=== PATIENT | female | born 1970 | race Caucasian/White ===

== ENCOUNTER → 2017-01-01 | Outpatient (REF) | payer OTHER ==
[2017-01-01 12:12] LABS: ESTRADIOL 112.7 PG/ML; FOLLICLE STIMULATING HORMONE 7.2 mIU/mL
== END ==
LOC: M LABDRAWC 11:22
PROVIDERS: ATTEND Obstetrics & Gynecology
DX: R53.83 Other fatigue (principal)

== ENCOUNTER → 2017-01-08 | Outpatient (REF) | payer OTHER ==
[2017-01-08 14:15] LABS: CALCIUM OXALATE CRYSTALS SMALL
== END ==
LOC: M SMT 13:01
PROVIDERS: ATTEND Nurse Practitioner Women's Health
DX: N20.0 Calculus of kidney (principal)

== ENCOUNTER 2017-03-05 14:25 | Inpatient (IN) | payer BC, OTHER ==
[~2017-03-05] VITALS: Ht 154.9 cm; Wt 92.6 kg
[2017-03-05] MEDS ORDERED: ALLE12TA31 PO (14:37)
[2017-03-05] MEDS ORDERED: ZOLP10TA2 PO (14:37)
[2017-03-05] MEDS ORDERED: ADVI200T PO (14:37)
[2017-03-05] MEDS ORDERED: NS 500 ML IV ONE (15:00)
[2017-03-05] MEDS ORDERED: ONDANSETRON 4MG/2ML VIAL (J2405) IV ONE (15:30)
[2017-03-05] MEDS ORDERED: MORPHINE 4 MG/ML 1ML SYRINGE IV ONE (15:30)
[2017-03-05 15:35] LABS: BASO % 0.2 % (0.0-1.0); EOS # 0.3 K/mm3 (0.0-0.50); EOS % 3.9 % (0.0-3.0); LARGE UNSTAINED CELL # 0.2 K/mm3 (0.0-0.4); LARGE UNSTAINED CELL % 1.9 % (0.0-4.0); LYMPH # 2.6 K/mm3 (1.5-4.5); LYMPH % 30.4 % (24.0-44.0); MEAN CORPUSCULAR HEMOGLOBIN 29.8 pg (27.0-33.0); MEAN CORPUSCULAR HGB CONC 34.9 g/dl (32.0-36.5); MEAN CORPUSCULAR VOLUME 85.4 fl (80.0-96.0); MONO # 0.4 K/mm3 (0.0-0.8); NEUTROPHILS # 4.7 K/mm3 (1.8-7.7); NEUTROPHILS % 58.7 % (36.0-66.0); PLATELET COUNT, AUTOMATED 224 k/mm3 (150-450); RED CELL DISTRIBUTION WIDTH 12.1 % (11.5-14.5); WHITE BLOOD COUNT 7.9 K/mm3 (4.0-10.0)
--- NOTE | 2017-03-05 15:46 | REP ---
CT ABDOMEN AND PELVIS WITHOUT CONTRAST: CT abdomen and pelvis was performed without oral or IV contrast with sagittal and coronal reconstruction images performed. Tiny subcentimeter nodular opacity in the left lung base is unchanged since prior CT of the chest 04/28/2013. Liver is grossly unremarkable. Patient has had a cholecystectomy. I do not see evidence of biliary dilatation. The spleen, adrenals, and pancreas are grossly unremarkable. Tiny dontrell like calcification is seen in the right lower pole collecting system without right hydronephrosis. There is an oval calculus at the left ureteropelvic junction measuring 12 x 10 mm. There is mild left hydronephrosis. There is no hydroureter. There is no abdominal aortic aneurysm. There is no adenopathy. There is no free air or free fluid. The appendix is normal. I see no bowel wall thickening. There is no evidence of pelvic mass. IMPRESSION: There is an oval calculus at the left ureteropelvic junction measuring 12 x 10 mm causing mild left hydronephrosis. Signed by Weston Ozuna MD 03/05/2017 04:49 P
[2017-03-05 15:48] LABS: ANION GAP 8 MEQ/L (8-16); BLOOD UREA NITROGEN 15 MG/DL (7-18); CALCIUM LEVEL 8.7 MG/DL (8.5-10.1); CARBON DIOXIDE LEVEL 24 MEQ/L (21-32); CHLORIDE LEVEL 109 MEQ/L (98-107); CREATININE FOR GFR 0.85 MG/DL (0.55-1.02); GLOMERULAR FILTRATION RATE > 60.0 (>58); GLUCOSE, FASTING 88 MG/DL (70-105); POTASSIUM SERUM 3.8 MEQ/L (3.5-5.1); SODIUM LEVEL 141 MEQ/L (136-145)
[2017-03-05] MEDS ORDERED: ALLE24TA8 PO (17:28)
[2017-03-05] MEDS ORDERED: OMEP40CA2 PO (17:29)
[2017-03-05] MEDS ORDERED: ceFAZolin 1GM INJ (J0690) As Ordered ONE (18:55)
[2017-03-05] MEDS ORDERED: CONRAY-60 60% 50ML VIAL (Q9961) As Ordered ONE (19:00)
[2017-03-05] MEDS ORDERED: MIDAZOLAM INJ 2 MG/2 ML VIAL (J2250) As Ordered ONE (19:59)
[2017-03-05] MEDS ORDERED: fentaNYL 100 MCG/2 ML INJECTION (J3010) As Ordered ONE (19:59)
[2017-03-05] MEDS ORDERED: PROPOFOL 200 MG/20 ML VIAL As Ordered ONE (20:00)
[2017-03-05] MEDS ORDERED: dexameTHASONE 4 MG/ML 1ML VIAL (J1100) As Ordered ONE (20:02)
[2017-03-05] MEDS ORDERED: KETOROLAC 60 MG/2 ML VIAL (J1885) As Ordered ONE (20:02)
[2017-03-05] MEDS ORDERED: ONDANSETRON 4MG/2ML VIAL (J2405) As Ordered ONE (20:03)
[2017-03-05] MEDS ORDERED: PERCOCET 5MG/325MG TAB PO PRN ×2 (20:30→21:45)
[2017-03-05] MEDS ORDERED: fentaNYL 100 MCG/2 ML INJECTION (J3010) IV PRN ×2 (20:30→21:45)
[2017-03-05] MEDS ORDERED: LR 1,000 ML IV SCH ×2 (20:30→21:45)
[2017-03-05 21:25] VITALS: BP 148/86
[2017-03-05 21:40] VITALS: BP 139/79
[2017-03-05 22:10] VITALS: BP 136/85
[2017-03-05] MEDS: CIPROFLOXACIN 500 MG TAB PO SCH (22:18)
[2017-03-05] MEDS: ACETAMINOPHEN 650MG ER TAB (TYLENOL ARTHRITIS) PO SCH (22:18)
[2017-03-05] MEDS: PANTOPRAZOLE 40MG INJ (PROTONIX) (C9113) IV SCH (22:18)
[2017-03-05 23:10] VITALS: BP 145/90
[2017-03-06 02:00] VITALS: BP 166/89
[2017-03-06] MEDS: MORPHINE 4 MG/ML 1ML SYRINGE IV PRN ×7 (02:57→23:26)
[2017-03-06] MEDS: ONDANSETRON 4MG/2ML VIAL (J2405) IV PRN ×2 (02:59→20:55)
[2017-03-06] MEDS: KETOROLAC 30 MG/ML VIAL (J1885) IV SCH ×3 (03:24→20:56)
[2017-03-06] MEDS: ACETAMINOPHEN 650MG ER TAB (TYLENOL ARTHRITIS) PO SCH (04:12)
[2017-03-06 06:00] VITALS: BP 126/74
[2017-03-06 06:00] LABS: MEAN CORPUSCULAR HEMOGLOBIN 30.2 pg (27.0-33.0); MEAN CORPUSCULAR HGB CONC 34.7 g/dl (32.0-36.5); MEAN CORPUSCULAR VOLUME 87.1 fl (80.0-96.0); RED CELL DISTRIBUTION WIDTH 11.7 % (11.5-14.5)
[2017-03-06] MEDS: CIPROFLOXACIN 500 MG TAB PO SCH ×2 (06:01→17:42)
[2017-03-06 06:11] LABS: ANION GAP 10 MEQ/L (8-16); BLOOD UREA NITROGEN 13 MG/DL (7-18); CALCIUM LEVEL 8.6 MG/DL (8.5-10.1); CARBON DIOXIDE LEVEL 24 MEQ/L (21-32); CHLORIDE LEVEL 107 MEQ/L (98-107); CREATININE FOR GFR 0.89 MG/DL (0.55-1.02); GLOMERULAR FILTRATION RATE > 60.0 (>58); GLUCOSE, FASTING 123 MG/DL (70-105); POTASSIUM SERUM 4.4 MEQ/L (3.5-5.1); SODIUM LEVEL 141 MEQ/L (136-145)
[2017-03-06] MEDS: DOCUSATE SODIUM 100 MG CAP PO SCH ×2 (08:43→20:12)
--- NOTE | 2017-03-06 09:09 | REP ---
C-ARM VIEWS DURING LEFT RETROGRADE PYELOGRAM: Five C-arm views are performed of the abdomen and pelvis. There is contrast injected into the left ureter which shows no gross stricture. Left pelvicaliceal system is partially opacified. Left ureteral stent is placed with the proximal end coiled in the region of the left renal pelvis and the distal end coiled in the region of the urinary bladder. 38 seconds fluoroscopy time utilized. Signed by Weston Ozuna MD 03/07/2017 05:09 P
[2017-03-06 10:00] VITALS: BP 138/71
--- NOTE | 2017-03-06 10:42 | RO ---
DATE OF PROCEDURE: 03/05/2017 PREOPERATIVE DIAGNOSES: Left hydronephrosis and left ureteropelvic junction (UPJ) stone. POSTOPERATIVE DIAGNOSES: Left hydronephrosis and left ureteropelvic junction (UPJ) stone. FINDINGS: 1.2 cm left UPJ stone. PROCEDURE: Cystoscopy, plus left retrograde pyelogram plus left JJ stent #6 Greek [place] Cook. SURGEON: Dr. Keegan Lee SENIOR SAS PROGRAMMER: Srini Oliver, PGY3 ANESTHESIA: MAC. COMPLICATIONS: None. ESTIMATED BLOOD LOSS: N/A. HISTORY OF PRESENT ILLNESS: 46-year-old female patient that has a left 1.2 cm pelvic stone. The patient has consented for cystoscopy, left retrograde pyelogram plus left JJ stent placement. PROCEDURE DESCRIPTION: With patient under MAC anesthesia in modified in supine low lithotomy position, after prepping and draping the area of concern which included the entire genitalia and abdomen, we started by introducing a #21-Greek cystoscope with a 30 lens under videoscopy guidance. The urethra and bladder neck were totally normal. The bladder had no tumors, no stones, no foreign objects. We could visualize both ureteral orifices. We catheterized with a #5-Greek Pollack catheter left ureteral orifice and did a retrograde pyelogram. We could see hydronephrosis in the left kidney. We advanced a guidewire passing the Pollack catheter up to the kidney and then advanced the Pollack catheter. At that moment in time, we took the guidewire out. We could actually collect urine from the left renal pelvis and sent it for culture. We then proceeded to actually pass a guidewire up to the kidney and take out the Pollack catheter. Following the guidewire, we placed a #6-Greek [place] Cook stent up to the kidney. Once the stent was in good position, we took the guidewire out. We could see the curl in the kidney and the curl in the bladder. The patient tolerated well the procedure. We emptied the bladder and took the cystoscope out. PLAN: The patient will stay overnight. She will stay on antibiotic and pain medication. When she is tolerating well regular diet and ambulating very well and pain is tolerated very well with oral pain medication, she will go home with pain medication and antibiotics. [facility]up [facility] [place] for definite therapy of her left kidney stone.
[2017-03-06] MEDS ORDERED: PERCOCET 5MG/325MG TAB PO PRN (13:15)
[2017-03-06] MEDS: oxyBUTYnin *DITROPAN XL* 5 MG TABCR PO SCH (13:22)
[2017-03-06 14:00] VITALS: BP 136/81
[2017-03-06] MEDS: PANTOPRAZOLE 40MG INJ (PROTONIX) (C9113) IV SCH (20:12)
[2017-03-06 22:00] VITALS: BP 120/64
[2017-03-07] MEDS: KETOROLAC 30 MG/ML VIAL (J1885) IV SCH ×2 (03:04→12:21)
[2017-03-07] MEDS: CIPROFLOXACIN 500 MG TAB PO SCH (05:11)
[2017-03-07 06:00] VITALS: BP 109/71
[2017-03-07 06:12] LABS: MEAN CORPUSCULAR HEMOGLOBIN 29.6 pg (27.0-33.0); MEAN CORPUSCULAR HGB CONC 34.3 g/dl (32.0-36.5); MEAN CORPUSCULAR VOLUME 86.4 fl (80.0-96.0); WHITE BLOOD COUNT 9.4 K/mm3 (4.0-10.0)
[2017-03-07 06:20] LABS: ANION GAP 7 MEQ/L (8-16); BLOOD UREA NITROGEN 19 MG/DL (7-18); CALCIUM LEVEL 8.5 MG/DL (8.5-10.1); CARBON DIOXIDE LEVEL 29 MEQ/L (21-32); CHLORIDE LEVEL 105 MEQ/L (98-107); CREATININE FOR GFR 1.04 MG/DL (0.55-1.02); GLOMERULAR FILTRATION RATE > 60.0 (>58); GLUCOSE, FASTING 105 MG/DL (70-105); POTASSIUM SERUM 3.5 MEQ/L (3.5-5.1); SODIUM LEVEL 141 MEQ/L (136-145)
[2017-03-07] MEDS: oxyBUTYnin *DITROPAN XL* 5 MG TABCR PO SCH (08:02)
[2017-03-07] MEDS: DOCUSATE SODIUM 100 MG CAP PO SCH (08:02)
[2017-03-07] MEDS ORDERED: CIPR500T3 PO (13:22)
[2017-03-07] MEDS ORDERED: OXYB10TA PO (13:22)
[2017-03-07] MEDS ORDERED: PERCOCET PO (13:22)
[2017-03-07 14:00] VITALS: BP 140/90
--- NOTE | 2017-03-07 15:28 | DSES ---
DATE OF ADMISSION: 03/07/2017 DATE OF DISCHARGE: ADMISSION DIAGNOSES: Left renal colic, left hydronephrosis, left ureteropelvic junction (UPJ) stone. POSTPROCEDURE DIAGNOSES: Left renal colic, left hydronephrosis, left ureteropelvic junction (UPJ) stone. SURGERY PERFORMED: Cystoscopy, plus left double JJ stent placement. ADMITTING SURGEON: Dr. Keegan Lee DISCHARGE SURGEON: Dr. Keegan Lee COMPLICATIONS: None. HISTORY OF PRESENT ILLNESS: This is a 46-year-old female patient who came to the emergency department at [facility] due to severe left flank pain. For this reason, she was taken to the operating room for a left double JJ stent placement as an emergency. The pain did not increase with IV antibiotics. HOSPITALIZATION COURSE: The patient, on postoperative day #1, was having severe bladder spasms due to left double JJ stent and hematuria. There was no left flank pain anymore. We were waiting for microbiology results from the urine cultures taken from the left renal pelvis, which actually came back with no growth. For this reason, on postoperative day #2, the patient actually requested to be discharged. We agreed upon this since her pain was relieved with pain medication. Her urine was still clear and not hematuric. There was no left flank pain. Mild spasms. We are giving her the following instructions: Followup in 7 to 10 days at [facility] to decide whether she actually goes for a shockwave lithotripsy or a left ureteroscopy plus lithotripsy or left PCNL. The patient will discuss with us options, pros and cons of each one. She will have a stent meanwhile to drain that left kidney. She is advised to increase water intake to more than 2.5 liters a day, take Percocet one tablet by mouth every 6 hours as needed for pain, oxybutynin 10 mg XL one a day for bladder spasms, and ciprofloxacin 500 mg one tablet by mouth twice a day for 10 days. She will followup at [facility] for definite therapy of her left kidney stone.
== END 2017-03-07 15:33 | disposition home or self-care (01) | DRG 465 ==
LOC: M ED 15:57 → M SDC 17:16 → M MSPAV 21:25 → M SDC 03-07 05:59 → M MSPAV 03-07 06:00
PROVIDERS: ADMIT Urology; ATTEND Urology
PROC: 0T778DZ Dilation of Left Ureter with Intraluminal Device, Via Natural or Artificial Opening Endoscopic (ICD-10-PCS; principal; 2017-03-05 19:00)
DX: N13.2 Hydronephrosis with renal and ureteral calculous obstruction (principal); N32.89 Other specified disorders of bladder

== ENCOUNTER → 2019-04-06 | Outpatient (REF) | payer OTHER ==
[~2019-04-06] MED LIST: ADVI200T PO; ALLE12TA31 PO; ALLE24TA7 PO; CIPR500T3 PO; OMEP40CA2 PO; OXYB10TA PO; PERCOCET PO; ZOLP10TA2 PO
[2019-04-06 11:57] LABS: BASO % 0.3 % (0.0-1.0); EOS # 0.2 10^3/uL (0.0-0.50); EOS % 3.1 % (0.0-3.0); HEMATOCRIT 44.3 % (36.0-47.0); HEMOGLOBIN 14.7 g/dl (12.0-15.5); LYMPH # 1.4 10^3/uL (1.5-4.5); LYMPH % 24.4 % (24.0-44.0); MEAN CORPUSCULAR HGB CONC 33.2 g/dl (32.0-36.5); MEAN CORPUSCULAR VOLUME 87.4 fl (80.0-96.0); MONO # 0.5 10^3/uL (0.0-0.8); NEUTROPHILS # 3.7 10^3/uL (1.8-7.7); NEUTROPHILS % 62.9 % (36.0-66.0); PLATELET COUNT, AUTOMATED 201 10^3/uL (150-450); RED BLOOD COUNT 5.07 10^6/uL (4.00-5.40); WHITE BLOOD COUNT 5.9 10^3/uL (4.0-10.0)
[2019-04-06 13:04] LABS: ALBUMIN 3.9 GM/DL (3.2-5.2); ALT/SGPT 35 U/L (12-78); BILIRUBIN,TOTAL 0.5 MG/DL (0.2-1.0); BLOOD UREA NITROGEN 17 MG/DL (7-18); CALCIUM LEVEL 9.1 MG/DL (8.5-10.1); CARBON DIOXIDE LEVEL 27 MEQ/L (21-32); CHLORIDE LEVEL 109 MEQ/L (98-107); CHOLESTEROL LEVEL 175 MG/DL (<200); CHOLESTEROL RISK RATIO 3.301 (<5); GLOMERULAR FILTRATION RATE > 60.0 (>58); GLUCOSE, FASTING 89 MG/DL (70-100); HDL CHOLESTEROL 53 MG/DL (>40); LDL CHOLESTEROL 105 MG/DL (<100); NON-HDL-C 122 MG/DL; POTASSIUM SERUM 4.2 MEQ/L (3.5-5.1); SODIUM LEVEL 144 MEQ/L (136-145); TOTAL 25(OH) VITAMIN D 17.6 NG/ML (30.0-100.0); TRIGLYCERIDES LEVEL 87 MG/DL (<150); VITAMIN B12 LEVEL 378 PG/ML (247-911)
== END ==
LOC: M SFHCCLAY 08:56
PROVIDERS: ATTEND Physician Assistant
DX: Z13.6 Encounter for screening for cardiovascular disorders (principal); R20.2 Paresthesia of skin

== ENCOUNTER → 2019-04-20 | Outpatient (CLI) | payer BC, OTHER ==
--- NOTE | 2019-04-21 10:37 | REP ---
MRI CERVICAL SPINE WITHOUT CONTRAST: HISTORY: Numbness and tingling bilateral arms and hands. Comparison MRI cervical spine study December 27, 2011. TECHNIQUE: Sagittal and axial T1- and T2-weighted scans are acquired in the usual fashion with and without fat saturation. Sequences include spin echo, turbo spin echo, and STIR imaging sequences. MRI FINDINGS: There is straightening and slight reversal of the normal cervical lordosis similar to the prior study. Cortical and medullary bone signal intensity are normal. No bony destructive lesion is seen. No fracture or collapse is seen. Alignment is otherwise normal. Craniocervical junction is unremarkable. No abnormal signal intensity is seen in the cervical cord. No extra spinal abnormality is appreciated. Axial and sagittal images taken at the C2-3 level show no significant finding. At C3-4, there is minimal central disc bulging. At C4-5, there is mild disc space narrowing and diffuse central disc bulging effacing the ventral subarachnoid space. There is bilateral uncovertebral spurring at C4-5, mild in degree. The previous study showed a more prominent central disc bulge at C4-5 then is present currently. At the C5-6 disc level, there is a moderate broad-based disc bulge which is more prominent today than previous. This produces mild cord compression with flattening of the ventral margin of the cord and dorsal displacement the cord. CSF signal is effaced ventrally and dorsally consistent with central canal stenosis. The AP dimension of the thecal sac at C5-6 in the midline is 6 mm. No abnormal cord signal is seen. There is bilateral uncovertebral spurring moderate in degree. The disc bulge is more prominent than on the 2012 study. The uncovertebral spurring is unchanged. The central canal stenosis is more prominent. At C6-C7, there is a similar pattern of diffuse disc bulging effacing the ventral subarachnoid space. Mild bilateral uncovertebral spurring is present at C6-7. These findings are slightly more prominent than on the prior study. No cord compression is seen. At C7-T1, no abnormality is noted. The T1-2 disc is slightly narrowed but no disc protrusion or cord compression is seen. IMPRESSION: Degenerative spondylosis changes. The dominant abnormality is noted at C5-6 where there is moderate central canal stenosis and mild cord compression due to diffuse disc bulging. This is more prominent than on the prior study. Bilateral uncovertebral spurring is seen at the C5-6 level and, to a lesser extent, at C4-5 and at C6-7. Electronically Signed by Stewart Underwood MD 04/21/2019 11:14 A
== END ==
LOC: M RAD 17:59
PROVIDERS: ATTEND Physician Assistant
DX: M50.21 Other cervical disc displacement, high cervical region (principal); M50.221 Other cervical disc displacement at C4-C5 level; M25.78 Osteophyte, vertebrae; M50.222 Other cervical disc displacement at C5-C6 level; M50.223 Other cervical disc displacement at C6-C7 level

== ENCOUNTER → 2019-05-31 | Outpatient (CLI) | payer BC, OTHER ==
--- NOTE | 2019-05-31 16:43 | REP ---
MRI brain without contrast: History: TIA blurred vision right eye. Right-sided numbness. . Comparison study: Comparison brain MRI study is from September 17, 2007. There is a comparison brain CT from September 11, 2009. Technique: Axial and sagittal imaging planes are utilized for T1 and T2-weighted scans. Sequences include spin-echo, fast spin echo, FLAIR, and diffusion weighted sequences. MRI findings: No bony calvarial lesion is seen. Craniocervical junction and upper cervical cord are normal in appearance. There is no MR evidence of significant paranasal sinus disease. No intraorbital abnormality is seen. The lateral, third, and fourth ventricles are normal in size and position. Ozuna-white differentiation pattern is intact above and below the tentorium. There is no evidence of intracranial hemorrhage. No mass, infarction, extra-axial fluid collection or midline shift is seen. No abnormal white matter lesion is seen. Impression: Negative noncontrast brain MRI study. Electronically Signed by Stewart Underwood MD 05/31/2019 04:34 P
--- NOTE | 2019-05-31 16:51 | REP ---
MR angiography the brain without contrast: History: Transient ischemic attack. Numbness in the right side. Technique: 3-D [id number] MR angiography of the brain is acquired in the usual fashion and maximal intensity projection images were generated in rotational format about the vertical and horizontal axes. In addition, source axial T1-weighted images are viewed in cine mode. MR angiographic findings: The distal vertebral arteries and basilar arteries are patent but generally somewhat small. The left distal vertebral artery is smaller than the right. Post anterior cerebral arteries have a persistent origin bilaterally which is a common normal. The posterior cerebral and superior cerebellar vessels are normal and symmetric. The distal internal carotid arteries are unremarkable. Anterior and middle cerebral arteries appear intact. There is no visible adkins aneurysm or arteriovenous malformation. Impression: In general, the posterior circulation arteries are diminutive. Otherwise unremarkable MR angiography the brain. Electronically Signed by Stewatr Underwood MD 05/31/2019 04:42 P
== END ==
LOC: M RAD 13:26
PROVIDERS: ATTEND Physician Assistant Medical
DX: G45.9 Transient cerebral ischemic attack, unspecified (principal)

== ENCOUNTER → 2021-06-11 | Outpatient (REF) | payer OTHER ==
[~2021-06-11] MED LIST changes: -OMEP40CA2 PO; +OMEP40CA4 PO; -OXYB10TA PO; +OXYB10TA23 PO
[2021-06-11 11:56] LABS: BASO % 0.4 % (0.0-1.0); EOS # 0.2 10^3/uL (0.0-0.5); EOS % 2.7 % (0.0-3.0); HEMATOCRIT 42.5 % (36.0-47.0); HEMOGLOBIN 13.8 g/dl (12.0-15.5); LYMPH % 36.4 % (24.0-44.0); MEAN CORPUSCULAR HEMOGLOBIN 27.9 pg (27.0-33.0); MEAN CORPUSCULAR HGB CONC 32.5 g/dl (32.0-36.5); MEAN CORPUSCULAR VOLUME 85.9 fl (80.0-96.0); MONO # 0.5 10^3/uL (0.0-0.8); MONO % 8.3 % (2.0-8.0); NEUTROPHILS # 2.9 10^3/uL (1.5-8.5); PLATELET COUNT, AUTOMATED 197 10^3/uL (150-450); RED BLOOD COUNT 4.95 10^6/uL (4.00-5.40); WHITE BLOOD COUNT 5.6 10^3/uL (4.0-10.0)
[2021-06-11 12:07] LABS: AMORPHOUS SEDIMENT LARGE (NEGATIVE); APPEARANCE, URINE TURBID (CLEAR); BACTERIA, URINE AUTO NEGATIVE (NEGATIVE); BILIRUBIN, URINE AUTO NEGATIVE (NEGATIVE); BLOOD, URINE BLOOD NEGATIVE (NEGATIVE); GLUCOSE, URINE (UA) AUTO NEGATIVE (NEGATIVE); KETONE, URINE AUTO NEGATIVE (NEGATIVE); LEUKOCYTE ESTERASE, URINE AUTO 1+ (NEGATIVE); MUCUS, URINE SMALL (NEGATIVE); NITRITE, URINE AUTO NEGATIVE (NEGATIVE); PROTEIN, URINE AUTO NEGATIVE (NEGATIVE); RBC, URINE AUTO 0 /HPF (0-3); SPECIFIC GRAVITY URINE AUTO 1.025 (1.002-1.035); SQUAMOUS EPITHELIAL CELL UR AU 8 /HPF (0-6); UROBILINOGEN, URINE AUTO 0.2 mg/dL (0.0-2.0); WBC, URINE AUTO 0 /HPF (0-3)
[2021-06-11 12:41] LABS: ALBUMIN 3.6 GM/DL (3.2-5.2); ALT/SGPT 26 U/L (12-78); BILIRUBIN,TOTAL 0.2 MG/DL (0.2-1.0); BLOOD UREA NITROGEN 15 MG/DL (7-18); CALCIUM LEVEL 8.5 MG/DL (8.5-10.1); CARBON DIOXIDE LEVEL 26 MEQ/L (21-32); CHLORIDE LEVEL 111 MEQ/L (98-107); CHOLESTEROL LEVEL 146 MG/DL (<200); CHOLESTEROL RISK RATIO 3.395 (<5); CREATININE FOR GFR 0.74 MG/DL (0.55-1.30); GLOMERULAR FILTRATION RATE > 60.0 (>51); GLUCOSE, FASTING 97 MG/DL (70-100); HDL CHOLESTEROL 43 MG/DL (>40); LDL CHOLESTEROL 91 MG/DL (<100); NON-HDL-C 103 MG/DL; POTASSIUM SERUM 4.2 MEQ/L (3.5-5.1); SODIUM LEVEL 143 MEQ/L (136-145); TOTAL 25(OH) VITAMIN D 27.5 NG/ML (30.0-100.0); TOTAL PROTEIN 6.5 GM/DL (6.4-8.2); TRIGLYCERIDES LEVEL 62 MG/DL (<150)
[2021-06-11 12:49] LABS: COLOR, URINE YELLOW (YELLOW)
== END ==
LOC: M SFHCCLAY 08:51
PROVIDERS: ATTEND Physician Assistant
DX: Z00.00 Encounter for general adult medical examination without abnormal findings (principal); M25.551 Pain in right hip

== ENCOUNTER → 2021-06-11 | Outpatient (CLI) | payer BC, OTHER | LOC: M CLY 08:37 | PROVIDERS: ATTEND Physician Assistant | DX: M89.9 Disorder of bone, unspecified (principal); M25.551 Pain in right hip ==

== ENCOUNTER → 2022-01-22 | Outpatient (REF) | payer OTHER ==
[2022-01-22 15:43] LABS: APPEARANCE, URINE HAZY (CLEAR); BACTERIA, URINE AUTO NEGATIVE (NEGATIVE); BILIRUBIN, URINE AUTO NEGATIVE (NEGATIVE); BLOOD, URINE BLOOD NEGATIVE (NEGATIVE); COLOR, URINE YELLOW (YELLOW); GLUCOSE, URINE (UA) AUTO NEGATIVE (NEGATIVE); KETONE, URINE AUTO NEGATIVE (NEGATIVE); LEUKOCYTE ESTERASE, URINE AUTO 2+ (NEGATIVE); NITRITE, URINE AUTO NEGATIVE (NEGATIVE); PROTEIN, URINE AUTO NEGATIVE (NEGATIVE); RBC, URINE AUTO 1 /HPF (0-3); SPECIFIC GRAVITY URINE AUTO 1.019 (1.002-1.035); SQUAMOUS EPITHELIAL CELL UR AU 6 /HPF (0-6); TRANSITIONAL EPITHELIAL AUTO <1 /HPF; UROBILINOGEN, URINE AUTO 0.2 mg/dL (0.0-2.0); WBC, URINE AUTO 4 /HPF (0-3)
[2022-01-22 15:46] LABS: BASO % 0.5 % (0.0-1.0); EOS # 0.2 10^3/uL (0.0-0.5); EOS % 3.1 % (0.0-3.0); HEMATOCRIT 42.4 % (36.0-47.0); HEMOGLOBIN 14.1 g/dl (12.0-15.5); LYMPH # 2.3 10^3/uL (1.5-5.0); LYMPH % 37.8 % (24.0-44.0); MEAN CORPUSCULAR HEMOGLOBIN 27.9 pg (27.0-33.0); MEAN CORPUSCULAR HGB CONC 33.3 g/dl (32.0-36.5); MONO # 0.4 10^3/uL (0.0-0.8); NEUTROPHILS # 3.2 10^3/uL (1.5-8.5); NEUTROPHILS % 51.4 % (36.0-66.0); PLATELET COUNT, AUTOMATED 234 10^3/uL (150-450); RED BLOOD COUNT 5.05 10^6/uL (4.00-5.40); WHITE BLOOD COUNT 6.2 10^3/uL (4.0-10.0)
[2022-01-22 16:27] LABS: ALBUMIN 3.7 GM/DL (3.2-5.2); ALT/SGPT 27 U/L (12-78); BILIRUBIN,TOTAL 0.3 MG/DL (0.2-1.0); BLOOD UREA NITROGEN 14 MG/DL (7-18); CALCIUM LEVEL 8.8 MG/DL (8.5-10.1); CARBON DIOXIDE LEVEL 31 MEQ/L (21-32); CHLORIDE LEVEL 107 MEQ/L (98-107); CREATININE FOR GFR 0.73 MG/DL (0.55-1.30); FREE T4 1.01 NG/DL (0.76-1.46); GLOMERULAR FILTRATION RATE > 60.0 (>51); GLUCOSE, FASTING 83 MG/DL (70-100); SODIUM LEVEL 140 MEQ/L (136-145); TOTAL 25(OH) VITAMIN D 15.1 NG/ML (30.0-100.0); TOTAL PROTEIN 6.8 GM/DL (6.4-8.2); VITAMIN B12 LEVEL 359 PG/ML
[2022-01-22 16:29] LABS: FOLATE 14.7 NG/ML
== END ==
LOC: M SFHCCAPE 12:41
PROVIDERS: ATTEND Physician Assistant
DX: R03.0 Elevated blood-pressure reading, without diagnosis of hypertension (principal); R00.2 Palpitations; E55.9 Vitamin D deficiency, unspecified

== ENCOUNTER → 2022-01-23 | Outpatient (CLI) | payer BC, OTHER | LOC: M CLY 09:28 | PROVIDERS: ATTEND Physician Assistant | DX: R03.0 Elevated blood-pressure reading, without diagnosis of hypertension (principal); R00.2 Palpitations ==

== ENCOUNTER → 2022-03-19 | Outpatient (CLI) | payer BC, OTHER | LOC: M CARPUL 09:22 | PROVIDERS: ATTEND Physician Assistant | DX: R00.2 Palpitations (principal) ==

== ENCOUNTER → 2022-05-07 | Outpatient (REF) | payer OTHER ==
[2022-05-07 17:14] LABS: BLOOD UREA NITROGEN 20 MG/DL (7-18); CARBON DIOXIDE LEVEL 26 MEQ/L (21-32); CHLORIDE LEVEL 113 MEQ/L (98-107); CREATININE FOR GFR 0.78 MG/DL (0.55-1.30); GLOMERULAR FILTRATION RATE > 60.0 (>51); GLUCOSE, FASTING 98 MG/DL (70-100); POTASSIUM SERUM 4.2 MEQ/L (3.5-5.1); SODIUM LEVEL 145 MEQ/L (136-145)
== END ==
LOC: M LABDRAWC 15:52
PROVIDERS: ATTEND Physician Assistant
DX: I11.0 Hypertensive heart disease with heart failure (principal); I50.9 Heart failure, unspecified

== ENCOUNTER → 2022-08-27 | Outpatient (REF) | payer OTHER ==
[2022-08-27 18:57] LABS: FREE T4 0.94 NG/DL (0.76-1.46); THYROID STIMULATING HORMONE 1.14 uIU/ML (0.358-3.740)
== END ==
LOC: M SFHCCLAY 09:42
PROVIDERS: ATTEND Physician Assistant
DX: R00.2 Palpitations (principal)

== ENCOUNTER → 2022-09-17 | Outpatient (CLI) | payer BC, OTHER | LOC: M RAD 15:17 | PROVIDERS: ATTEND Physician Assistant | DX: R51.9 Headache, unspecified (principal); G89.29 Other chronic pain; R42 Dizziness and giddiness ==

== ENCOUNTER → 2022-11-13 | Outpatient (REF) | payer OTHER, BC ==
[2022-11-13 11:54] LABS: HEMATOCRIT 46.1 % (36.0-47.0); HEMOGLOBIN 15.2 g/dl (12.0-15.5); MEAN CORPUSCULAR HEMOGLOBIN 28.8 pg (27.0-33.0); MEAN CORPUSCULAR VOLUME 87.3 fl (80.0-96.0); PLATELET COUNT, AUTOMATED 280 10^3/uL (150-450); RED BLOOD COUNT 5.28 10^6/uL (4.00-5.40); WHITE BLOOD COUNT 11.7 10^3/uL (4.0-10.0)
[2022-11-13 12:21] LABS: MAGNESIUM LEVEL 2.2 MG/DL (1.8-2.4)
[2022-11-13 12:23] LABS: ALKALINE PHOSPHATASE 85 U/L (46-116); ALT/SGPT 30 U/L (7.0-40); AST/SGOT 17 U/L (<34); BILIRUBIN,TOTAL 0.4 MG/DL (0.3-1.2); BLOOD UREA NITROGEN 22 MG/DL (9-23); CALCIUM LEVEL 9.4 MG/DL (8.5-10.1); CARBON DIOXIDE LEVEL 29 MMOL/L (20-31); CHLORIDE LEVEL 102 MMOL/L (98-107); CHOLESTEROL LEVEL 180 MG/DL (<200); CHOLESTEROL RISK RATIO 3.13 (<5); CREATININE FOR GFR 0.76 MG/DL (0.55-1.30); GLOMERULAR FILTRATION RATE > 60.0 (>51); GLUCOSE, FASTING 99 MG/DL (60-100); HDL CHOLESTEROL 57.4 MG/DL (>40); LDL CHOLESTEROL 97.2 MG/DL (<100); NON-HDL-C 123 MG/DL; POTASSIUM SERUM 4.8 MMOL/L (3.5-5.1); SODIUM LEVEL 139 MMOL/L (136-145); TOTAL PROTEIN 7.2 G/DL (5.7-8.2); TRIGLYCERIDES LEVEL 127 MG/DL (<150)
[2022-11-13 12:24] LABS: THYROID STIMULATING HORMONE 2.083 uIU/ML (0.55-4.78)
== END ==
LOC: M LABDRAWC 11:31
PROVIDERS: ATTEND Physician Assistant
DX: I11.9 Hypertensive heart disease without heart failure (principal); Z13.220 Encounter for screening for lipoid disorders; I49.3 Ventricular premature depolarization

== ENCOUNTER → 2023-01-14 | Outpatient (CLI) | payer BC, OTHER | LOC: M SLEEP 20:00 | PROVIDERS: ATTEND Nurse Practitioner Adult Health | DX: G47.30 Sleep apnea, unspecified (principal) ==

== ENCOUNTER → 2023-06-30 | Outpatient (CLI) | payer BC, OTHER | LOC: M SLEEP 20:00 | PROVIDERS: ATTEND Nurse Practitioner Adult Health | DX: G47.33 Obstructive sleep apnea (adult) (pediatric) (principal) ==

== ENCOUNTER → 2023-08-14 | Outpatient (CLI) | payer BC, OTHER | LOC: M PLAIMG 06:42 | PROVIDERS: ATTEND Nurse Practitioner Family | DX: M54.12 Radiculopathy, cervical region (principal) ==

== ENCOUNTER → 2024-04-27 | Outpatient (CLI) | payer BC | LOC: M SLEEP 20:00 | PROVIDERS: ATTEND Nurse Practitioner Adult Health | DX: G47.33 Obstructive sleep apnea (adult) (pediatric) (principal) ==

== ENCOUNTER → 2025-05-24 | Outpatient (REF) | payer BC ==
[2025-05-24 18:21] LABS: BASO # 0.0 10^3/uL (0.0-0.2); BASO % 0.7 % (0.0-1.0); EOS # 0.2 10^3/uL (0.0-0.5); EOS % 3.0 % (0.0-3.0); LYMPH # 1.7 10^3/uL (1.5-5.0); LYMPH % 32.1 % (24.0-44.0); MONO # 0.4 10^3/uL (0.0-0.8); MONO % 6.9 % (2.0-8.0); NEUTROPHILS # 3.1 10^3/uL (1.5-8.5); NEUTROPHILS % 57.1 % (36.0-66.0); PLATELET COUNT, AUTOMATED 218 10^3/uL (150-450)
[2025-05-24 18:44] LABS: ALT/SGPT 22 U/L (7.0-40); AST/SGOT 22 U/L (<34); CALCIUM LEVEL 8.6 MG/DL (8.5-10.1); CARBON DIOXIDE LEVEL 26 MMOL/L (20-31); CHLORIDE LEVEL 107 MMOL/L (98-107); CHOLESTEROL LEVEL 185 MG/DL (<200); CHOLESTEROL RISK RATIO 3.49 (<5); CREATININE FOR GFR 0.77 MG/DL (0.55-1.30); GLOMERULAR FILTRATION RATE > 90.0 (>51); LDL CHOLESTEROL 113.3 MG/DL (<100); NON-HDL-C 132.1 MG/DL; POTASSIUM SERUM 4.0 MMOL/L (3.5-5.1); SODIUM LEVEL 145 MMOL/L (136-145); TRIGLYCERIDES LEVEL 94 MG/DL (<150)
[2025-05-24 18:46] LABS: FREE T4 1.06 NG/DL (0.89-1.76)
== END ==
LOC: M SFHCCAPE 09:14
PROVIDERS: ATTEND Physician Assistant Medical
DX: G47.00 Insomnia, unspecified (principal); Z91.09 Other allergy status, other than to drugs and biological substances; K21.9 Gastro-esophageal reflux disease without esophagitis; Z13.220 Encounter for screening for lipoid disorders